=== PATIENT | female | born 1945 | race Caucasian/White ===

== ENCOUNTER → 2017-12-16 | Outpatient (CLI) | payer OTHER, MEDICARE ==
[~2017-12-16] MED LIST: AMITRIPTYLINE H25 M2 PO; CARDIZEM CD180 MG PO; CENTRUM SILVER1 EAC2 PO; CHILDREN'S ASPI81 M1 PO; COZAAR 50 MG TA50 M2 PO; LIORESAL 10 MG10 MG PO; LIPITOR10 MG PO; NOLVADEX20 MG PO; ZANAFLEX2 MG PO
== END ==
LOC: CAT 07:29 → RAD 07:29
DX: M48.07 Spinal stenosis, lumbosacral region (principal); M47.897 Other spondylosis, lumbosacral region; M51.37 Other intervertebral disc degeneration, lumbosacral region; G95.89 Other specified diseases of spinal cord

== ENCOUNTER → 2017-12-17 | Outpatient (CLI) | payer OTHER, MEDICARE | END | disposition home or self-care (01) | LOC: RAD 08:32 | DX: M51.36 Other intervertebral disc degeneration, lumbar region (principal); Z79.82 Long term (current) use of aspirin; Z79.899 Other long term (current) drug therapy ==